=== PATIENT | male | born 2000 | race Caucasian/White ===

== ENCOUNTER 2020-10-27 13:19 | Emergency (ER) | payer SELFPAY ==
[~2020-10-27] VITALS: Ht 180 cm; Wt 79.0 kg
[2020-10-27 13:29] VITALS: BP 167/87
--- NOTE | 2020-10-27 13:59 | ED Lower Extremity ---
General Chief Complaint: Lower Extremity Stated Complaint: LT THIGH INJ Nursing Triage Note: PT REPORTS ABOUT 9 DAYS AGO HE WAS DOING SINGLE LEG DEADLIFTS IN THE GYM AND HIS LEFT HAMSTRING STARTED ACHING. HE REPORTS ABOUT 4 DAYS LATER HE NOTICED IT WAS INFLAMED ON HIS HAMSTRING/CALF AREA. HE REPORTS HE HAS AN APPT WITH THE [facility] THIS COMING SATURDAY. HE REPORTS TAKING IBUPROFEN LAST PM AND HAS BEEN ICING IT. 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 Pain is located over his distal and posterior medial thigh. Pain is rated moderate to severe is worse with flexion, weightbearing despite taking the ibuprofen 800 mg 3 times daily. Pain is deep dull and throbbing at times. Symptoms are worse at night when laying on side. Patient is restricted or limited his leg use and exercise since injuring his hamstring. He has an appointment with sports medicine physician on Saturday but states he cannot wait till Saturday due to the amount of pain he is in. Denies numbness or weakness in his distal leg. He denies any other symptoms or complaints. Onset: last week Severity: moderate Pain/Injury Location: left thigh Method of Injury: other Modifying Factors: Improves With Other Allergies and Home Medications Patient Home Medication List Home Medication List Reviewed: Yes Review of Systems Constitutional: see HPI EENTM: see HPI Respiratory: see HPI Cardiovascular: see HPI Genitourinary: see HPI Musculoskeletal: see HPI Skin: see HPI Psychiatric/Neurological: See HPI All Other Systems Reviewed Negative Unless Noted: Yes Past Lqvzrgk-Yidrzh-Vtzfgw Hx Patient Social History Tobacco Use?: Yes Smoking Status: Never a Smoker Smokeless Tobacco Frequency: Never a User Substance use?: No Alcohol Use?: No Pt feels they are or have been: No Physical Exam Vital Signs Vital Signs - First Documented 10/27/20 13:29 Temp 36.9 Pulse 62 Resp 18 B/P (MAP) 167/87 (113) Pulse Ox 98 O2 Delivery Room Air Capillary Refill : Less Than 3 Seconds Height, Weight, BMI Height: '" Weight: lbs. oz. kg; 24.00 BMI Method: General Appearance: WD/WN, no apparent distress Legs: left leg limited range of motion, left leg pain, left leg soft tissue tenderness (Posterior medial distal hamstring), left leg swelling Progress/Results/Core Measures Results/Orders Vital Signs/I&O 10/27/20 13:29 Temp 36.9 Pulse 62 Resp 18 B/P (MAP) 167/87 (113) Pulse Ox 98 O2 Delivery Room Air Blood Pressure Mean: 113 Departure Impression Primary Impression: Left hamstring muscle strain Disposition: HOME, SELF-CARE Condition: Stable Departure-Patient Inst. Decision time for Depature: 14:01 Referrals: NO,LOCAL PHYSICIAN (PCP/Family) Primary Care Physician Patient Instructions: Hamstring Injury Add. Discharge Instructions: Please continue to rest, ice leg, wear a wrap for support. Take tramadol as needed for pain at bedtime. Follow-up with your PCP and/or sports physician. All discharge instructions reviewed with patient and/or family. Voiced understanding. Scripts Tramadol HCl (Tramadol HCl) 50 Mg Tablet 50 MG PO Q6H PRN for PAIN for 3 Days, #20 TAB 0 Refills Prov: CECY FARFAN DO 10/27/20 CECY FARFAN DO Oct 27, 2020 13:59
[2020-10-27] MEDS ORDERED: TRM50T PO (14:02)
== END 2020-10-27 14:05 | disposition home or self-care (01) ==
LOC: ER FS 13:22
DX: S76.812A Strain of other specified muscles, fascia and tendons at thigh level, left thigh, initial encounter (principal); X50.1XXA Overexertion from prolonged static or awkward postures, initial encounter
CPT/HCPCS: 99283